=== PATIENT | female | born 1970 | race Caucasian/White ===

== ENCOUNTER 2021-02-06 05:31 | Outpatient (RCR) | payer OTHER ==
[~2021-02-06] VITALS: Ht 155 cm; Wt 68.0 kg
[~2021-02-06 05:31] MED LIST: ACHYD1T PO; BUPR300T43 PO; DCS100C PO; Estradiol PO; HYDR-3583 PO; Ibuprofen PO; Ondansetron PO; SCP1.5TD TOP
[2021-02-07] MEDS ORDERED: FAMO-119 PO (10:05)
[2021-02-07] MEDS ORDERED: OMEP20TA7 PO (10:05)
== END 2021-02-07 11:42 | disposition home or self-care (01) ==
LOC: PREOP 05:31
PROVIDERS: ATTEND Surgery
DX: Z01.818 Encounter for other preprocedural examination (principal)

== ENCOUNTER 2021-02-13 08:54 | Day surgery (SDC) | payer OTHER ==
--- NOTE | 2021-02-05 18:49 | HISTORY AND PHYSICAL ---
DATE OF SERVICE: DATE OF ADMISSION: 02/13/2021 ATTENDING PRIMARY CARE PHYSICIAN: Anastacia Stiles MD HISTORY OF PRESENT ILLNESS: The patient is a 51-year-old female who states that she has had a 2-3-year history of worsening gastroesophageal reflux disease, which is also contributed to hoarseness and cough at night. She also does report mild dysphagia. She has been taken different acid reducers in the past, which may have initially been effective; however, currently does not. She does not report any hematemesis, no coffee-ground emesis. She is also in need of a screening colonoscopy. Her last colonoscopy was approximately 10 years ago. She does not report any red blood per rectum nor any dark tarry stools; however, does have well-formed stools. PAST MEDICAL HISTORY: Gastroesophageal reflux disease, degenerative joint disease, anxiety. PAST SURGICAL HISTORY: section x3, 1999, 2000, 2006. Laparoscopic cholecystectomy 2010, complete hysterectomy 2013. MEDICATIONS: Omeprazole 20 mg daily, Pepcid 20 mg daily., Tums p.r.n., hormone pellets. SOCIAL HISTORY: Negative smoke, social alcohol on the weekends, which may encompass up to 6 to 10 drinks on the weekend. FAMILY HISTORY: Mother, breast cancer, diabetes. Father, stroke age 60, myocardial infarction 80, hypertension. VITAL SIGNS: Blood pressure 132/78, current weight 171.6 pounds at 5 feet 0 inches. REVIEW OF SYSTEMS: Well-nourished female, in no acute distress. She is not experiencing any shortness of breath or difficulty breathing. No chest pain, palpitations, diaphoresis. Epigastric burning sensation as well as crampy pain as well as intermittent episodes of mild dysphagia. No nausea, vomiting. No hematemesis, no coffee ground emesis. No fever, chills, no recent inadvertent weight loss. All other review of systems negative. PHYSICAL EXAMINATION: CHEST: Clear. Good breath sounds bilaterally. HEART: Regular, no murmurs. EXTREMITIES: No lower extremity edema, negative Homans sign. HEENT: No scleral icterus. NECK: No cervical lymphadenopathy. ABDOMEN: Soft, nondistended. There is mild discomfort in the epigastric region upon deep palpation. No hernias. SKIN: Warm, dry. ASSESSMENT AND PLAN: A 51-year-old female with worsening gastroesophageal reflux disease progressing to dysphagia. She is also in need of a screening colonoscopy. We will schedule her for an EGD with biopsies as appropriate as well as a colonoscopy. Job ID: [id number] DocumentID: [id number] Dictated Date: 02/01/2021 18:47:53 [place] Strip Inspector Date: 02/01/2021 19:21:46 Dictated By: NICK EAGLE MD [facility]
[~2021-02-13] VITALS: Ht 154.9 cm; Wt 68.0 kg
[~2021-02-13 08:54] MED LIST changes: +FAMO-119 PO; +OMEP20TA7 PO
[2021-02-13] MEDS ORDERED: LACTATED RINGERS 1,000 ML IV STA (08:56)
[2021-02-13] MEDS ORDERED: LACTATED RINGERS 1,000 ML IV ONE (08:58)
[2021-02-13] MEDS ORDERED: LIDOCAINE JELLY 2% 6 ML SYRINGE MM PRN (09:00)
[2021-02-13] MEDS ORDERED: HURRICAINE EXT TUBE (BENZOCAINE) XX PRN (09:00)
[2021-02-13 09:11] VITALS: BP 130/90
--- NOTE | 2021-02-13 10:32 | Progress Note-Pre Operative ---
Pre-Operative Progress Note H&P Reviewed The H&P was reviewed, patient examined and no changes noted. Date Seen by Provider: Feb 13, 2021 Time Seen by Provider: 10:00 Date H&P Reviewed: Feb 13, 2021 Time H&P Reviewed: 10:00 Pre-Operative Diagnosis: GERD/dysphagia, screening colo NICK EAGLE MD Feb 13, 2021 10:32
--- NOTE | 2021-02-13 10:33 | Discharge Inst-Surgical ---
D/C Lap Instructions-SHAGUFTA Follow Up Activity as tolerated High Fiber Diet 25g or more per day Avoid Alcohol, Caffeine, Spicy [place] and Acid foods. Drink 64 fluid oz or more of fluids per day. Symptoms to Report: Fever over 101 degree F, Nausea/Vomiting If any problems/questions: Contact your physician or go to Emergency Room NICK EAGLE MD Feb 13, 2021 10:33
[2021-02-13] MEDS ORDERED: ONDANSETRON 4 MG (ZOFRAN) ORAL DISSOLVE TAB PO PRN (10:45)
[2021-02-13] MEDS ORDERED: ONDANSETRON 4 MG/2 ML (SDV) Z0FRAN IVP PRN (10:45)
[2021-02-13] MEDS ORDERED: MIDAZOLAM 2 MG/2 ML (VERSED) VIAL ONE (10:46)
[2021-02-13] MEDS ORDERED: PROPOFOL INJECTION 50 ML IV ONE (10:47)
[2021-02-13] MEDS ORDERED: proPOfol 200 MG/20 ML (DIPRIVAN) VIAL IV ONE (11:12)
[2021-02-13 11:20] VITALS: BP 94/52
[2021-02-13 11:25] VITALS: BP_SYST 102; BP_SYST 105; BP_DIAS 58; BP_DIAS 59
[2021-02-13 11:55] VITALS: BP 127/85
[2021-02-13 12:01] VITALS: BP 127/85
--- NOTE | 2021-02-13 12:35 | Progress Note-Post Operative ---
Post-Operative Progess Note Surgeon (s)/Development Trainer (s) Surgeon NICK EAGLE MD Development Trainer: none Pre-Operative Diagnosis GERD/dysphagia, screening colo Post-Operative Diagnosis reflux esophagitis(stage 2), moderate HH(2.5cm), moderate gastritis. HP sigmoid colon. Procedure & Operative Findings Date of Procedure 02/13/21 Procedure Performed/Findings EGD with bx. Colonoscopy with bx. Anesthesia Type mac Estimated Blood Loss Estimated blood loss (mL): minimal Specimens/Packing Specimens Removed ge jxn, antrum, sigmoid colon NICK EAGLE MD Feb 13, 2021 12:35
--- NOTE | 2021-02-13 13:29 | Anesthesia-General Post-Op ---
MAC Patient Condition Mental Status/LOC: Same as Preop Cardiovascular: Satisfactory Nausea/Vomiting: Absent Respiratory: Satisfactory Pain: Controlled Complications: Absent Post Op Complications Complications None Follow Up Care/Instructions Patient Instructions None needed. Anesthesiology Discharge Order Discharge Order Patient is doing well, no complaints, stable vital signs, no apparent adverse anesthesia problems. No complications reported per nursing. YOLY PHILLIPS CRNA Feb 13, 2021 13:29
--- NOTE | 2021-02-13 17:10 | OPERATIVE REPORT ---
DATE OF SERVICE: 02/13/2021 ATTENDING PRIMARY CARE PHYSICIAN: Anastacia Stiles MD. PREOPERATIVE DIAGNOSES: Gastroesophageal reflux disease, chronic cough, dysphagia, and screening colonoscopy. POSTOPERATIVE DIAGNOSES: Reflux esophagitis stage II, moderate size hiatal hernia approximately 2.5 cm in size, moderate gastritis. No distal obstructions. Small hyperplastic polyp of the sigmoid colon. PROCEDURES PERFORMED: EGD with biopsy, colonoscopy with biopsy. SURGEON: Nick Eagle MD. ANESTHESIA: Monitored anesthesia care. ESTIMATED BLOOD LOSS: Minimal. FINDINGS: Reflux esophagitis stage II, moderate size hiatal hernia approximately 2.5 cm in size, moderate gastritis. No distal obstructions. Small hyperplastic polyp of the sigmoid colon. DISPOSITION: The patient tolerated the procedure well. INDICATIONS FOR PROCEDURE: The patient is a 51-year-old female with a year history of worsening gastroesophageal reflux disease, which has contributed to hoarseness and nocturnal cough. She also reports some mild dysphagia on an intermittent basis. She has taken many different acid reducers in the past and initially, this was effective; however, currently is not. She does not report any hematemesis and no coffee-ground emesis. She is also in need of a screening colonoscopy. Last colonoscopy was approximately 10 years ago. She does not report any red blood per rectum nor any dark tarry stools. She does have well-formed stools. DESCRIPTION OF PROCEDURE: The patient was brought to the endoscopy suite and laid in the left lateral decubitus position. After adequate IV pain and sedative medications and monitored anesthesia care, the mouthpiece was applied. The endoscope was then placed in the mouth, visualizing the pharynx and hypopharyngeal region. Vocal cords, epiglottis and vallecula identified and appeared to be normal. The endoscope was then gently abated, the esophageal opening and esophagus insufflated. The endoscope was then advanced through the first, second and third portion of esophagus. At the level of the GE junction, reflux esophagitis stage II identified. A biopsy was taken with forceps with visualization of good hemostasis. The endoscope was then retroflexed, visualizing a moderate size hiatal hernia approximately 2.5 cm in size. Also during gastric air distention, she was constantly regurgitating air. A moderate gastritis was noted. No formal ulcerations, polyps or any neoplasms. A biopsy was taken of the antrum to rule out H. pylori with visualization of good hemostasis. The endoscope was then advanced to the pylorus and the first and second portion of the duodenum with no distal obstructions. The endoscope was then slowly withdrawn while taking a second look and suctioning of residual air with no additional findings. A digital rectal examination was performed, which did not reveal any significant hemorrhoids. Normal sphincter tone was felt and there were no palpable masses. The endoscope was then intubated and anus and rectum gently insufflated. The endoscope was then advanced through the valves of Fox of the rectum with no polyps or any neoplasms identified. We then proceeded through the sigmoid colon, where no diverticulosis was identified. A small hyperplastic polyp approximately 2 mm in size was identified. This was biopsied and destroyed with forceps and electrocautery with visualization of good hemostasis. The endoscope was then advanced to the remainder of the descending, transverse and ascending colon to the cecum, which were normal. The endoscope was then slowly withdrawn while taking a second look and suctioning of residual air with no additional findings. The patient tolerated the procedure well. We will recommend the necessary lifestyle and diet accommodation including small and more frequent meals, avoiding to eating at night as well as head elevation while lying supine. She also does have a significant size hiatal hernia and if she continues to have symptoms, despite maximal medical therapy, she may be a candidate for a hiatal hernia repair. Before this, we would proceed with an esophageal manometry study to rule out an esophageal dysmotility disorder. We also recommend incorporation of high-fiber diet with a fiber supplement, which should equal or exceed 25 grams daily as well as significant amounts of water to promote soft stools on a daily basis. If she is asymptomatic from a lower gastrointestinal standpoint, she does not need another colonoscopy for another 10 years. Job ID: [id number] DocumentID: [id number] Dictated Date: 02/13/2021 11:22:37 Facility Coordinator Date: 02/13/2021 17:09:46 Dictated By: NICK EAGLE MD
== END 2021-02-13 12:04 | disposition home or self-care (01) ==
LOC: ENDO 08:54
PROVIDERS: ATTEND Surgery
DX: Z12.11 Encounter for screening for malignant neoplasm of colon (principal); K21.00 Gastro-esophageal reflux disease with esophagitis, without bleeding; K44.9 Diaphragmatic hernia without obstruction or gangrene; K29.70 Gastritis, unspecified, without bleeding; D12.5 Benign neoplasm of sigmoid colon; K31.9 Disease of stomach and duodenum, unspecified

== ENCOUNTER 2021-03-07 05:40 | Outpatient (CLI) | payer OTHER ==
[~2021-03-07] VITALS: Ht 154.9 cm; Wt 77.2 kg
== END 2021-03-07 16:21 | disposition home or self-care (01) ==
LOC: PREOP 05:40
PROVIDERS: ATTEND Surgery
DX: Z01.818 Encounter for other preprocedural examination (principal)

== ENCOUNTER 2021-03-14 10:44 | Day surgery (SDC) | payer OTHER ==
--- NOTE | 2021-03-12 19:06 | HISTORY AND PHYSICAL ---
DATE OF SERVICE: DATE OF ADMISSION: 03/14/2021. ATTENDING PRIMARY CARE PHYSICIAN: Anastacia Stiles MD. HISTORY OF PRESENT ILLNESS: The patient is a 51-year-old female, who had worsening issues with gastroesophageal reflux disease, which progressed to hoarseness as well as nocturnal cough. She also had reported some dysphagia on an intermittent basis as well. This was investigated and she underwent an EGD and was found to have a reflux esophagitis stage II as well as a significant size hiatal hernia 2.5 cm in size as well as a moderate gastritis. She has also been struggling with weight for the past 10 years. She has tried a number of diet and exercise attempts with no success. She has tried diet programs including low-calorie, low-carbohydrate as well as ketogenic diets and states that she would lose some weight; however, would regain the weight back. She has also tried exercise regimens including walking, stationary bike as well as aerobic exercise classes and again would lose some weight; however, would regain the weight back. She has not tried any prescription strength medications in the past. She is currently in our surgical weight loss program for the gastric sleeve resection; however, also in need of repair of the hiatal hernia due to her significant reflux. An esophageal manometry was performed, which did show 70% of normal esophageal peristalsis; however, again, a shortened lower esophageal sphincter intra-abdominal length consistent with a significant size hiatal hernia. Her other medical comorbidities related to her obesity include degenerative joint disease and anxiety. PAST MEDICAL HISTORY: Gastroesophageal reflux disease, hiatal hernia, degenerative joint disease, and anxiety. PAST SURGICAL HISTORY: section x3 in 1998, 2000 and 2006. Laparoscopic cholecystectomy in 2010 and total hysterectomy in 2013. ALLERGIES: No known drug allergies. MEDICATIONS: Omeprazole 20 mg daily, Pepcid 20 mg daily, tums p.r.n., and Zyrtec p.r.n. SOCIAL HISTORY: Negative smoke, social alcohol. FAMILY HISTORY: Mother, breast cancer, diabetes. Father, stroke in his 60s, myocardial infarction in 80s, and hypertension. REVIEW OF SYSTEMS: A well-nourished female currently in no acute distress. She is not experiencing any shortness of breath or difficulty in breathing. No chest pain, palpitations or diaphoresis. Intermittent episodes of epigastric pain as well as reflux and regurgitation and associated chronic cough. No hematemesis and no coffee ground emesis. No diarrhea or constipation. No red blood per rectum and no dark tarry stools. No fever, chills, and no recent inadvertent weight loss. All other review of systems negative. PHYSICAL EXAMINATION: VITAL SIGNS: Stable. Blood pressure 132/78, current weight 181.6 pounds at 5 feet 0 inches and body mass index of 35.1. CHEST: Clear. Good breath sounds bilaterally. HEART: Regular, no murmurs. EXTREMITIES: No lower extremity edema and negative Homans sign. HEENT: No scleral icterus. NECK: No cervical lymphadenopathy. ABDOMEN: Soft, nontender, and nondistended. SKIN: Warm and dry. ASSESSMENT AND PLAN: A 51-year-old female with a history of morbid obesity and significant medical comorbidities including gastroesophageal reflux disease, regurgitation as well as a significant size hiatal hernia as well as other medical comorbidities including degenerative joint disease and anxiety and we will proceed with laparoscopic hiatal hernia repair as well as a gastric sleeve resection. Job ID: [id number] DocumentID: [id number] Dictated Date: 03/12/2021 15:16:24 Structural Steel Trades Worker Date: 03/12/2021 16:04:29 Dictated By: NICK EAGLE MD
[~2021-03-14] VITALS: Ht 154.9 cm; Wt 77.2 kg
[2021-03-14] VITALS (9 sets, daily range): BP systolic 120–157; BP diastolic 71–85
[2021-03-14] MEDS ORDERED: ceFAZolin INJECTION 1,000 MG VIAL IV ONE (11:00)
[2021-03-14] MEDS ORDERED: ceFAZolin INJECTION 1,000 MG in WATER (STERILE) FOR INJECTION 10 ML IV ONE (11:00)
--- NOTE | 2021-03-14 11:24 | Progress Note-Pre Operative ---
Pre-Operative Progress Note H&P Reviewed The H&P was reviewed, patient examined and no changes noted. Date Seen by Provider: Mar 14, 2021 Time Seen by Provider: 11:15 Date H&P Reviewed: Mar 14, 2021 Time H&P Reviewed: 11:15 Pre-Operative Diagnosis: morbid obesity, GERD, hiatal hernia NICK EAGLE MD Mar 14, 2021 11:24
--- NOTE | 2021-03-14 11:29 | Discharge Inst-Surgical ---
D/C Lap Instructions-SHAGUFTA Follow Up Appt in 2 weeks Activity as tolerated No driving for 24 hours No driving while on pain medications Incentive Spirometry use every 2 hours while awake Phase 1 clear liquid diet for next 2 weeks. Symptoms to Report: Fever over 101 degree F, Nausea/Vomiting Infection Signs and Symptoms to report: Increased redness, Foul odor of wound, Increased drainage Bathing instructions: May shower Operative Area Clean/Dry; Keep incision clean/dry If any problems/questions: Contact your physician or go to Emergency Room NICK EAGLE MD Mar 14, 2021 11:29
[2021-03-14] MEDS ORDERED: METOCLOPRAMIDE INJ 10 MG/2 ML (REGLAN) IV PRN (11:30)
[2021-03-14] MEDS ORDERED: diphenhydrAMINE 50 MG/ML INJ (BENADRYL) IVP PRN (11:30)
[2021-03-14] MEDS ORDERED: metroNIDAZOLE 500MG/100ML IVPB 100 ML IV SCH (11:30)
[2021-03-14] MEDS ORDERED: NS IV 1000 ML 1,000 ML IV SCH (11:30)
[2021-03-14] MEDS ORDERED: diphenhydrAMINE 50 MG/ML INJ (BENADRYL) IV PRN (11:30)
[2021-03-14] MEDS ORDERED: NALOXONE 0.4 MG/ML 1 ML (NARCAN) VIAL IV PRN (11:30)
[2021-03-14] MEDS ORDERED: ONDANSETRON 4 MG/2 ML (SDV) Z0FRAN IV PRN (11:30)
[2021-03-14] MEDS ORDERED: fentaNYL INJ 1,000 MCG in NS (IVPB) 80 ML IV SCH (11:30)
[2021-03-14] MEDS: LACTATED RINGERS 1,000 ML IV PRN ×2 (11:44→15:52)
[2021-03-14] MEDS ORDERED: LIDOCAINE/EPI 1%-1:100,000 (XYLOCAINE) 20ML ONE (11:45)
[2021-03-14] MEDS ORDERED: FAMOTIDINE 20MG/2ML IV (PEPCID) IV ONE (12:30)
[2021-03-14] MEDS ORDERED: ONDANSETRON 4 MG/2 ML (SDV) Z0FRAN IV ONE (12:30)
[2021-03-14] MEDS ORDERED: MIDAZOLAM 2 MG/2 ML (VERSED) VIAL IV ONE (12:30)
[2021-03-14] MEDS ORDERED: ONDANSETRON 4 MG/2 ML (SDV) Z0FRAN ONE ×6 (12:35→17:20)
[2021-03-14] MEDS ORDERED: MIDAZOLAM 2 MG/2 ML (VERSED) VIAL ONE ×2 (12:35→12:52)
[2021-03-14] MEDS ORDERED: FAMOTIDINE 20MG/2ML IV (PEPCID) ONE (12:35)
[2021-03-14] MEDS ORDERED: LIDOCAINE PF 2% 5 ML (XYLOCAINE) VIAL ONE (12:52)
[2021-03-14] MEDS ORDERED: ROCURONIUM 10 MG/ML 5 ML SYRINGE IV ONE (12:52)
[2021-03-14] MEDS ORDERED: GLYCOPYRROLATE 0.2 MG/ML (ROBINUL) 2 ML VIAL ONE (12:52)
[2021-03-14] MEDS ORDERED: fentaNYL INJ 100 MCG/2 ML AMP ONE (12:52)
[2021-03-14] MEDS ORDERED: NEOSTIGMINE 3 MG/3 ML VIAL ONE (12:52)
[2021-03-14] MEDS ORDERED: proPOfol 200 MG/20 ML (DIPRIVAN) VIAL IV ONE (12:52)
[2021-03-14] MEDS ORDERED: ceFAZolin 2 GM IV Premixed 50 ML IV SCH (14:00)
[2021-03-14] MEDS ORDERED: HYDROmorphone 2 MG/ML VIAL (DILAUDID) ONE (14:34)
[2021-03-14] MEDS ORDERED: SUCCINYLCHOLINE INJ 100 MG/5 ML SYR/VIAL ONE (15:14)
[2021-03-14] MEDS ORDERED: SEVOFLURANE (ULTANE) 15 ML INHAL SOLN ONE (15:24)
--- NOTE | 2021-03-14 15:31 | Progress Note-Post Operative ---
Post-Operative Progess Note Surgeon (s)/Stonemason Helper (s) Surgeon NICK EAGLE MD Stonemason Helper: conor chan LICENSED PHYSICAL THERAPIST ASSISTANT Pre-Operative Diagnosis morbid obesity, GERD, hiatal hernia Post-Operative Diagnosis same Procedure & Operative Findings Date of Procedure 03/14/21 Procedure Performed/Findings laparoscopic hiatal hernia repair, gastric sleeve resection. Anesthesia Type get Estimated Blood Loss Estimated blood loss (mL): minimal Specimens/Packing Specimens Removed stomach NICK EAGLE MD Mar 14, 2021 15:31
[2021-03-14] MEDS ORDERED: HYDROmorphone 2 MG/ML VIAL (DILAUDID) IV ONE (15:45)
[2021-03-14] MEDS ORDERED: morphine INJ 10 MG/ML 1ML (SYR OR VIAL) IVP ONE (15:45)
[2021-03-14] MEDS: ONDANSETRON 4 MG/2 ML (SDV) Z0FRAN IVP PRN ×2 (15:59→16:07)
[2021-03-14] MEDS ORDERED: morphine INJ 10 MG/ML 1ML (SYR OR VIAL) ONE (16:04)
--- NOTE | 2021-03-14 16:12 | Anesthesia-General Post-Op ---
General Patient Condition Mental Status/LOC: Same as Preop Cardiovascular: Satisfactory Nausea/Vomiting: Present Respiratory: Satisfactory Pain: Controlled Complications: Absent Post Op Complications Complications None Follow Up Care/Instructions Patient Instructions None needed. Anesthesia/Patient Condition Patient Condition Patient is doing well, C/O some abd pain which is to be expected, stable vital signs. She did have some nausea, no vomiting and ondansetron was given. We will be available if needed. CARINE MESSER DO Mar 14, 2021 16:12
[2021-03-14] MEDS: 1/2 NS W/KCL 20 MEQ/L 1,000 ML IV SCH ×2 (17:12→18:00)
[2021-03-14] MEDS: ONDANSETRON 4 MG/2 ML (SDV) Z0FRAN IVP SCH ×3 (17:12→18:20)
[2021-03-14] MEDS: METOCLOPRAMIDE INJ 10 MG/2 ML (REGLAN) IVP SCH ×4 (17:12→18:35)
[2021-03-14] MEDS: RT-ALBUTEROL SULF 2.5 MG/3 ML PRE-MIX VIAL INH SCH ×2 (17:12→21:29)
[2021-03-14] MEDS ORDERED: HYDROcodone/APAP 7.5MG-325 MG/15 ML (LORTAB) UDC PO PRN (17:30)
[2021-03-14] MEDS ORDERED: fentaNYL PCA 1,000 MCG/100 ML IV SCH (17:30)
[2021-03-14] MEDS ORDERED: NS IV 1000 ML 1,000 ML ONE (17:40)
[2021-03-14] MEDS: metroNIDAZOLE 500MG/100ML IVPB 100 ML IV SCH (18:27)
[2021-03-14] MEDS: ENOXAPARIN 30 MG/0.3 ML (LOVENOX) SYR SC SCH (21:07)
[2021-03-14] MEDS: ceFAZolin 2 GM IV Premixed 50 ML IV SCH (21:07)
[2021-03-14] MEDS ORDERED: SCOPOLAMINE 1.5 MG (TRANSDERM-SCOP) PATCH TD ONE (21:45)
--- NOTE | 2021-03-14 23:05 | OPERATIVE REPORT ---
DATE OF SERVICE: 03/14/2021 ATTENDING PRIMARY CARE PHYSICIAN: Anastacia Stiles MD PREOPERATIVE DIAGNOSES: Gastroesophageal reflux disease, hiatal hernia, morbid obesity. POSTOPERATIVE DIAGNOSES: Gastroesophageal reflux disease, hiatal hernia, morbid obesity. PROCEDURE: Laparoscopic hiatal hernia repair, gastric sleeve resection. SURGEON: Nick Eagle MD. MEDIA INTERN: [place] APRN. ANESTHESIA: General endotracheal. ESTIMATED BLOOD LOSS: Minimal. FINDINGS: Significant size type 4 hiatal hernia, approximately 4 cm in size. DISPOSITION: The patient tolerated the procedure well. INDICATIONS: The patient is a 51-year-old female who has had worsening issues with gastroesophageal reflux disease, which has progressed to hoarseness as well as nocturnal cough. She also has reported symptoms of dysphagia on an intermittent basis. This was investigated and she underwent an EGD and was found to have a reflux esophagitis stage II as well as a significant size hiatal hernia approximately 3 cm in size as well as a moderate gastritis. She has also been struggling with weight for the past 10 years. She has tried a number of diet and exercise attempts with no success. She has tried diet programs including low-calorie, low-carbohydrate diet as well as ketogenic diets and would lose some weight; however, would regain the weight back. She has also tried exercise regimens including walking, stationary bike as well as aerobic exercise regimens and again would lose some weight; however, would regain the weight back. She has not tried any prescription strength medications in the past. She continues to have symptoms of reflux despite maximal medical therapy including b.i.d. PPI acid reducers. We also had her undergo an esophageal manometry study, which did show 70% normal esophageal peristalsis; however, again short in the lower esophageal sphincter of intra-abdominal length consistent with a significant size hiatal hernia. Her medical comorbidities related to obesity include degenerative joint disease, anxiety and again gastroesophageal reflux disease. DESCRIPTION OF PROCEDURE: The patient was brought to the operating room, laid supine on the table. After adequate IV pain and sedative medications and general endotracheal intubation, the abdomen was prepped and draped in standard surgical fashion. A 0.5% Marcaine with epinephrine was used to anesthetize overlying skin in left upper abdominal quadrant and a transverse skin incision made using a 15 blade. An 0 silk suture was applied to the medial aspect of incision for retraction. The Veress needle inserted with low opening pressure of 0 mmHg. The Veress needle removed, and a 5 mm XL trocar placed followed by a 5 mm 45-degree angle laparoscope visualizing the peritoneal cavity. A 4-quadrant abdominal exploration was performed. The gallbladder appeared to be normal as did the liver, stomach, omentum. We could not visualize the hiatal hernia at this time. Under direct visualization, we then proceeded to place a midabdominal left of midline 10 mm port after the skin and peritoneal lining were anesthetized using 0.5% Marcaine with epinephrine and a transverse skin incision made using 15 blade. In a similar manner, a midabdominal right of midline 15 mm port was placed followed by a right upper abdominal quadrant 5 mm port. The epigastric region was then anesthetized and a transverse skin incision made using 11 blade. A tract was then created through the abdominal wall layers using a trocar to a 5 mm port and through this opening, a medium sized Nathansen liver retractor was placed and left lobe of the liver retracted anteriorly and superiorly. The patient was then placed in steep reverse Trendelenburg position. An approximately 4 cm type IV hiatal hernia identified. We then proceeded with complete dissection of the hernia sac, starting with opening of the pars flaccida using the Sonicision. We then proceeded to take down the phrenoesophageal ligament anteriorly as well as posteriorly using the Sonicision as well as blunt dissection. The entire angle of His connective tissue fibers were then also taken down, identifying the left vashti of the diaphragm medially. Both the left and right vashti of the diaphragm were identified and a 36-[place] ViSiGi bougie was placed. Plan was to proceed with a significantly loose wrap around this bougie. We proceeded with posterior repair using interrupted 2-0 Surgidac sutures approximating the left and right vashti of the diaphragm with visualization of good hemostasis. We continued with the sutures until the diaphragmatic hiatus natural anatomy was restored and there was significant loose opening around the esophagus. Good hemostasis was observed. We then measured 6 cm from the greater curvature from the pylorus and marked this with a marking pen. The gastrocolic ligament next to the stomach was then opened using the Sonicision entering the lesser sac. We then proceeded with caudal dissection until we were approximately 2 cm below our marking using the Sonicision. We then proceeded cephalad taking down the short gastric vessels as well as freeing the greater curvature of the stomach. Using the ViSiGi as our staple line guide, we then proceeded with our gastric sleeve resection and we first proceeded with a 45 mm black load stapler 2 cm below our marking. We then proceeded with one 60 mm black load followed by two 60 mm purple loads. Two purple load staplers were then used to complete our gastric sleeve resection leaving approximately 2 cm next to the gastroesophageal junction with visualization of good hemostasis. Staple line corners were then clipped with 5 mm clips. A leak test was then performed to 35 mmHg air pressure with no leak identified. The ViSiGi was then removed and fibrin glue was then placed onto the staple line and the omentum placed onto the staple line. The liver retractor was then removed. The stomach was removed through the 15 mm port site. The 10 and 15 mm port site fascia and peritoneum were then closed under direct visualization using a Ish-Sudeep device and 0 Vicryl suture. The abdomen was then desufflated and remaining ports removed. All skin incisions were closed using 4-0 Monocryl running subcuticular sutures. Wounds were then cleaned and covered with Dermabond. The patient tolerated the procedure well. We will admit her 23-hour observation. We will proceed with pain control with a AUTOMATION TECHNOLOGIST pump and also proceed with DVT prophylaxis with early ambulation, calf SCDs as well as Lovenox injections. Tomorrow morning, we will start phase 1 clear liquid diet. Once she is tolerating clears, has good pain control with oral pain medications, ambulating well, we will discharge her home. She will be instructed to then follow a phase 1 clear liquid diet for the next 2 weeks. Job ID: [id number] DocumentID: [id number] Dictated Date: 03/14/2021 15:52:59 Evaluation Analyst Date: 03/14/2021 23:05:23 Dictated By: NICK EAGLE MD
[2021-03-15] VITALS: BP 113/73
[2021-03-15] MEDS: ONDANSETRON 4 MG/2 ML (SDV) Z0FRAN IVP SCH ×2 (00:20→06:09)
[2021-03-15] MEDS: METOCLOPRAMIDE INJ 10 MG/2 ML (REGLAN) IVP SCH ×2 (00:20→06:09)
[2021-03-15] MEDS: metroNIDAZOLE 500MG/100ML IVPB 100 ML IV SCH ×2 (02:43→09:09)
[2021-03-15 04:00] VITALS: BP 107/67
[2021-03-15] MEDS: ceFAZolin 2 GM IV Premixed 50 ML IV SCH (06:09)
[2021-03-15 06:30] LABS: POTASSIUM 4.7 MMOL/L (3.6-5.0)
[2021-03-15 06:31] LABS: CALCIUM 7.5 MG/DL (8.5-10.1)
[2021-03-15 06:35] LABS: CREATININE SERUM 0.7 MG/DL (0.60-1.30)
[2021-03-15 06:46] LABS: HEMATOCRIT 41 % (35-52); HEMOGLOBIN 13.8 g/dL (11.5-16.0); MEAN CORPUSCULAR HEMOGLOBIN 33 pg (25-34); MEAN CORPUSCULAR HGB CONC 34 g/dL (32-36); MEAN CORPUSCULAR VOLUME 98 fL (80-99); MEAN PLATELET VOLUME 9.7 fL (9.0-12.2); PLATELET COUNT 264 10^3/uL (130-400); WHITE BLOOD COUNT 11.8 10^3/uL (4.3-11.0)
[2021-03-15] MEDS: RT-ALBUTEROL SULF 2.5 MG/3 ML PRE-MIX VIAL INH SCH (06:51)
[2021-03-15 08:00] VITALS: BP 124/64
--- NOTE | 2021-03-15 08:24 | Progress Note ---
Subjective Date Seen by a Provider: Mar 15, 2021 Time Seen by a Provider: 08:05 Subjective/Events-last exam Patient reports doing ok. Reports minimal abdominal discomfort. Does report some nausea when getting up, but no vomiting. Started trying clear liquids with no issues currently. Objective Exam Vital Signs Date Time Temp Pulse Resp B/P (MAP) Pulse Ox O2 Delivery O2 Flow Rate FiO2 03/15/21 08:00 36.8 84 18 124/64 (84) 96 Nasal Cannula 2.00 03/15/21 06:51 91 Room Air 03/15/21 06:18 16 03/15/21 04:00 37.5 77 16 107/67 (80) 97 Nasal Cannula 2.00 03/15/21 00:00 36.4 76 16 113/73 (86) 98 Nasal Cannula 2.00 03/14/21 21:24 94 Nasal Cannula 2.00 03/14/21 21:00 18 03/14/21 21:00 Nasal Cannula 2.00 03/14/21 19:46 36.6 96 20 120/71 (87) 95 Nasal Cannula 2.00 03/14/21 17:00 36.8 79 20 144/81 (102) 98 Room Air 03/14/21 16:30 36.6 20 157/77 (103) 93 Nasal Cannula 2 03/14/21 16:30 Nasal Cannula 2 03/14/21 16:20 18 130/79 (96) 98 Nasal Cannula 2 03/14/21 16:15 Nasal Cannula 2 03/14/21 16:10 14 137/78 (97) 93 Nasal Cannula 2 03/14/21 16:00 14 137/74 (95) 96 OxyMask 2 03/14/21 16:00 OxyMask 2 03/14/21 15:50 14 148/85 (106) 99 OxyMask 3 03/14/21 15:37 37.3 16 143/83 (103) 99 OxyMask 6 03/14/21 15:37 OxyMask 6 03/14/21 11:15 36.4 90 18 133/77 (95) 98 Room Air I & O 03/15/21 07:00 Intake Total 1000 ml Output Total 2100 ml Balance -1100 ml Capillary Refill : General Appearance: No Apparent Distress, WD/WN Neck: Normal Inspection, Supple Respiratory: No Accessory Muscle Use, No Respiratory Distress Cardiovascular: Regular Rate, Rhythm, No Edema Gastrointestinal: normal bowel sounds, soft, tenderness Extremity: Normal Inspection, Normal Range of Motion Neurologic/Psychiatric: Alert, Oriented x3 Skin: Normal Color, Warm/Dry, Other (Abdominal incisions C/D/I) Results Lab Laboratory Tests 03/15/21 06:11: Sodium Level 135, Potassium Level 4.7, Chloride Level 102, Carbon Dioxide Level 19L, Anion Gap 14, Blood Urea Nitrogen 6L, Creatinine 0.70, Estimat Glomerular Filtration Rate 89, BUN/Creatinine Ratio 9, Glucose Level 107H, Calcium Level 7.5L 03/15/21 06:41: White Blood Count 11.8H, Red Blood Count 4.18, Hemoglobin 13.8, Hematocrit 41, Mean Corpuscular Volume 98, Mean Corpuscular Hemoglobin 33, Mean Corpuscular Hemoglobin Concent 34, Red Cell Distribution Width 11.9, Platelet Count 264, Mean Platelet Volume 9.7 Microbiology 03/14/21 MRSA Screen - Final, Complete MRSA not isolated Assessment/Plan Assessment/Plan Assess & Plan/Chief Complaint A 51 year old female with morbid obesity and hiatal hernia who is S/P laparoscopic hiatal hernia repair and gastric sleeve resection VSS WBC 11.8 Hgb stable Continue IV fluids 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
[2021-03-15] MEDS ORDERED: fentaNYL INJ 100 MCG/2 ML AMP IVP PRN (08:45)
[2021-03-15] MEDS: ENOXAPARIN 30 MG/0.3 ML (LOVENOX) SYR SC SCH (08:59)
[2021-03-15] MEDS ORDERED: PANTOPRAZOLE 40 MG (PROTONIX) TAB PO SCH (09:00)
[2021-03-15] MEDS ORDERED: SENNA W/DOCUSATE (SENOKOT S) TABLET PO SCH (09:00)
[2021-03-15] MEDS ORDERED: PANTOPRAZOLE 40 MG (PROTONIX) VIAL IV SCH (09:00)
[2021-03-15 11:22] VITALS: BP 124/64
[2021-03-15] MEDS ORDERED: METOCLOPRAMIDE INJ 10 MG/2 ML (REGLAN) IVP PRN (11:30)
[2021-03-15] MEDS ORDERED: ONDANSETRON 4 MG/2 ML (SDV) Z0FRAN IVP PRN (11:30)
--- NOTE | 2021-03-15 13:30 | Anesthesia-General Post-Op ---
General Patient Condition Mental Status/LOC: Same as Preop Cardiovascular: Satisfactory Nausea/Vomiting: Absent Respiratory: Satisfactory Pain: Controlled Complications: Absent Post Op Complications Complications None Follow Up Care/Instructions Patient Instructions None needed. Anesthesia/Patient Condition Patient Condition Patient is doing well, no complaints, stable vital signs, no apparent adverse anesthesia problems. No complications reported per nursing. YOLY PHILLIPS CRNA Mar 15, 2021 13:30
== END 2021-03-15 11:26 | disposition home or self-care (01) ==
LOC: SDC 10:44 → 4TH 16:40 → SDC 03-15 11:26
PROVIDERS: ATTEND Surgery
DX: K21.9 Gastro-esophageal reflux disease without esophagitis (principal); K44.9 Diaphragmatic hernia without obstruction or gangrene; E66.01 Morbid (severe) obesity due to excess calories; M19.90 Unspecified osteoarthritis, unspecified site; F41.9 Anxiety disorder, unspecified; Z68.32 Body mass index [BMI] 32.0-32.9, adult; Z90.49 Acquired absence of other specified parts of digestive tract; Z90.710 Acquired absence of both cervix and uterus; Z79.899 Other long term (current) drug therapy; Z80.3 Family history of malignant neoplasm of breast; Z83.3 Family history of diabetes mellitus; Z82.3 Family history of stroke; Z82.49 Family history of ischemic heart disease and other diseases of the circulatory system
CPT/HCPCS: 36415; 80048; 85027; 87081; 94640; 94760